=== PATIENT | male | born 1985 | race Caucasian/White ===

== ENCOUNTER 2016-12-31 16:20 | Emergency (ER) | payer MEDICARE ==
[2016-12-31] MEDS ORDERED: HYDROcodone/Acetaminophen 10/325 mg Tablet ONE (16:34)
== END 2016-12-31 16:47 | disposition home or self-care (01) ==
LOC: BURERS 16:20
DX: G89.29 Other chronic pain (principal); F11.23 Opioid dependence with withdrawal; I65.8 Occlusion and stenosis of other precerebral arteries; F32.9 Major depressive disorder, single episode, unspecified; F41.9 Anxiety disorder, unspecified; F17.210 Nicotine dependence, cigarettes, uncomplicated
CPT/HCPCS: 99281